=== PATIENT | female | born 1935 | race Caucasian/White ===

== ENCOUNTER 2016-09-13 14:14 | Outpatient (CLI) | payer MEDICARE ==
--- NOTE | 2016-09-14 15:51 | Mammography Report ---
DIGITAL SCREENING MAMMOGRAM: 09/13/2016 CLINICAL INDICATION: An 80-year-old, for screening. COMPARISON: 08/2015, 08/2014, 07/2013, 04/2011, 04/2010, 01/2009, 12/2008. TECHNIQUE: Routine CC and MLO projections were obtained of the breasts. FINDINGS: Parenchymal tissue within the breasts is predominantly fatty replaced. There are no domina nt masses, suspicious microcalcifications, or secondary signs of malignancy. In comparison to the pre vious studies, there are no significant changes. IMPRESSION: NO MAMMOGRAPHIC EVIDENCE OF MALIGNANCY. NO SIGNIFICANT INTERVAL CHANGES. RECOMMENDATION: Screening mammography is recommended annually. BIRADS category 1 - negative. STANDARD QUALIFYING STATEMENTS 1. This examination was reviewed with the aid of Computed-Aided Detection (CAD). 2. A negative or benign imaging report should not delay biopsy if clinically suspicious findings are present. Consider surgical consultation if warranted. More than 5% of cancers are not identified by i maging. 3. Dense breasts may obscure an underlying neoplasm. JOB #: [id number] EXT JOB #:[id number]
== END 2016-09-13 14:15 | disposition home or self-care (01) ==
LOC: DI 14:14
PROVIDERS: ATTEND Family Medicine
DX: Z12.31 Encounter for screening mammogram for malignant neoplasm of breast (principal)
CPT/HCPCS: 77067

== ENCOUNTER 2016-09-26 08:17 | Outpatient (CLI) | payer MEDICARE ==
[2016-09-26 12:59] LABS: ALBUMIN/GLOBULIN RATIO 1.3 (1.0-2.2); BILIRUBIN,TOTAL 0.5 mg/dL (0.2-1.0); BUN - BLOOD UREA NITROGEN 36 mg/dL (6-20); CALCIUM 9.4 mg/dL (8.5-10.3); CARBON DIOXIDE - CO2 25 mmol/L (21-32); CHLORIDE 98 mmol/L (101-111); CHOL/HDL RATIO 2.7 (<4.4); CHOLESTEROL 175 mg/dL; CREATININE 1.4 mg/dL (0.4-1.0); GFR - MDRD 36 (>89); GLUCOSE 113 mg/dL (70-100); HDL CHOLESTEROL 65 mg/dL; LDL/HDL RATIO 1.2 (<4.4); POTASSIUM 3.8 mmol/L (3.5-5.0); SODIUM 135 mmol/L (135-145); TOTAL PROTEIN 7.1 g/dL (6.7-8.2); TRIGLYCERIDES 144 mg/dL; VLDL CHOLESTEROL 29 mg/dL
[2016-09-26 13:22] LABS: BASOPHILS # (AUTO) 0.1 10^3/uL (0.0-0.1); BASOPHILS % (AUTO) 1.1 %; EOSINOPHILS # (AUTO) 0.5 10^3/uL (0.0-0.7); EOSINOPHILS % (AUTO) 4.8 %; HCT - HEMATOCRIT 40.3 % (37.0-47.0); HGB - HEMOGLOBIN 13.3 g/dL (12.0-16.0); LYMPHOCYTES % (AUTO) 20.6 %; MEAN CORPUSCULAR HEMOGLOBIN 27.7 pg (27.0-31.0); MEAN CORPUSCULAR VOLUME 83.9 fL (81.0-99.0); MEAN PLATELET VOLUME 9.7 fL (7.9-10.8); MONOCYTES # (AUTO) 0.7 10^3/uL (0.0-1.0); MONOCYTES % (AUTO) 7.3 %; NEUTROPHILS # (AUTO) 6.5 10^3/uL (1.5-6.6); NEUTROPHILS % (AUTO) 66.2 %; RED BLOOD COUNT 4.81 10^6/uL (4.20-5.40); RED CELL DISTRIBUTION WIDTH 14.7 % (12.0-15.0); UNCORRECTED WHITE BLOOD COUNT 9.8 x10^3/uL; WHITE BLOOD COUNT 9.8 x10^3/uL (4.8-10.8)
[2016-09-26 13:23] LABS: HEMOGLOBIN A1C 0.58 g/dL
== END 2016-09-26 08:18 | disposition home or self-care (01) ==
LOC: LAB.WCP 08:17
PROVIDERS: ATTEND Family Medicine
DX: I10 Essential (primary) hypertension (principal); E78.5 Hyperlipidemia, unspecified
CPT/HCPCS: 36415; 80053; 80061; 83036; 85025

== ENCOUNTER 2017-07-06 10:24 | Day surgery (SDC) | payer MEDICARE ==
[2017-07-06] MEDS ORDERED: LACTATED RINGERS 500 ML IV ONE (10:40)
[2017-07-06] MEDS ORDERED: CYCLOPENTOLATE 1% OPHTH DROPS 2 ML ONE (10:46)
[2017-07-06] MEDS ORDERED: PHENYLEPHRINE 2.5% OPHTH 2 ML DROPS ONE (10:46)
[2017-07-06] MEDS ORDERED: PROPARACAINE 0.5% OPHTH DROPS 15 ML ONE (10:46)
[2017-07-06] MEDS ORDERED: KETOROLAC 0.45% OPHTH DROPS ONE (10:46)
[2017-07-06] MEDS ORDERED: MIDAZOLAM 2 MG/2 ML VIAL IVP ONE (11:44)
[2017-07-06] MEDS ORDERED: BRIMONIDINE 0.2% OPHTH DROPS 5 ML OPTH ONE (11:45)
[2017-07-06] MEDS ORDERED: EPINEPHrine 1 MG/ML AMP IVP ONE (11:45)
[2017-07-06] MEDS ORDERED: TIMOLOL 0.5% OPHTH DROPS OPTH ONE (11:46)
[2017-07-06] MEDS ORDERED: CHONDR SULF/HYALURONATE SYRINGE IO ONE (11:46)
[2017-07-06] MEDS ORDERED: TRIAMCIN/MOXIFLOX/VANCO 1 ML VIAL IO ONE (11:46)
[2017-07-06] MEDS ORDERED: BSS/LIDOCAINE/EPINEPHRINE 1 ML SYRINGE IO ONE (11:46)
[2017-07-06] MEDS ORDERED: PROPARACAINE 0.5% OPHTH DROPS 15 ML RIGHTEYE ONE (11:47)
--- NOTE | 2017-07-06 12:12 | OPERATIVE REPORT ---
DATE OF SERVICE: 07/06/2017 Physician: Madhu Harkins MD PREOPERATIVE DIAGNOSIS: Visually significant cataract, right eye. This was her first cataract surgery. POSTOPERATIVE DIAGNOSIS: Visually significant cataract, right eye. This was her first cataract surgery. NAME OF PROCEDURE: Phacoemulsification with posterior chamber intraocular lens implant, right eye. SURGEON: Madhu Harkins MD ANESTHESIA: Monitored anesthesia care. COMPLICATIONS: None. OPERATIVE INDICATIONS: This is an 81-year-old woman with progressive vision loss in the right eye due to 2-3+ nuclear sclerotic, 2-3+ cortical, and vacuolar cataract. Best corrected visual acuity was 20/25 with glare to count fingers at 4 feet. Indications for surgery were overall decrease in vision, difficulty reading, difficulty driving in low light or at night, and just generalized blurry vision. She was consented at length concerning the risks and benefits of cataract surgery after which she expressed a desire to proceed with surgery. OPERATIVE PROCEDURE: The patient was taken into OR #3 and placed under monitored anesthesia care. A surgical timeout was conducted confirming correct patient, correct procedure, and correct surgical site. She was given topical anesthesia, and then prepped and draped in the usual sterile fashion. The eye was entered at the 12 and 9 o'clock positions. Intracameral Shugarcaine was injected into the anterior chamber, followed by Viscoat. A continuous-tear curvilinear capsulorrhexis was performed. The nucleus was hydrodissected and phacoemulsified. The cortex was evacuated using automated infusion and aspiration. Provisc was injected in the capsular bag, and a 22.5 diopter intraocular lens was inserted into the bag. Approximately 0.7 mL of a mixture of triamcinolone and moxifloxacin was injected subconjunctivally in the superior quadrant, and then an additional 0.4 mL of vancomycin was also injected in the same space for infection and inflammation prophylaxis. I and A was used to evacuate the viscoelastic material. The eye was inflated to physiologic pressure using balanced salt solution and found to be watertight. The patient was taken from the operating room in good condition and given postop instructions. TD: 07/06/2017 12:05
[2017-07-06 12:29] VITALS: BP 135/65
== END 2017-07-06 10:25 | disposition home or self-care (01) ==
LOC: SDS 10:24
PROVIDERS: ATTEND Ophthalmology
PROC: 08RJ3JZ Replacement of Right Lens with Synthetic Substitute, Percutaneous Approach (ICD-10-PCS; principal; 2017-07-06 11:30)
DX: H25.811 Combined forms of age-related cataract, right eye (principal); I10 Essential (primary) hypertension; Z79.82 Long term (current) use of aspirin; Z86.73 Personal history of transient ischemic attack (TIA), and cerebral infarction without residual deficits
CPT/HCPCS: 66984; A9270; J3490; V2632

== ENCOUNTER 2017-08-31 09:25 | Day surgery (SDC) | payer MEDICARE ==
[~2017-08-31 09:25] MED LIST: BRIMONIDINE 0.2% OPHTH DROPS 5 ML ONE; BSS/LIDOCAINE/EPINEPHRINE 1 ML SYRINGE ONE; EPINEPHrine 1 MG/ML AMP ONE; TIMOLOL 0.5% OPHTH DROPS ONE; TRIAMCIN/MOXIFLOX OPHTHALMIC 0.6 ML VIAL IO ONE; VANCOMYCIN OPHTHALMI 8MG/0.8ML 8 MG/0.8 ML SYRINGE IO ONE
[2017-08-31] MEDS ORDERED: PHENYLEPHRINE 2.5% OPHTH 2 ML DROPS LEFTEYE ONE (09:40)
[2017-08-31] MEDS ORDERED: KETOROLAC 0.45% OPHTH DROPS LEFTEYE ONE (09:40)
[2017-08-31] MEDS ORDERED: PROPARACAINE 0.5% OPHTH DROPS 15 ML LEFTEYE ONE ×2 (09:40→10:35)
[2017-08-31] MEDS ORDERED: CYCLOPENTOLATE 1% OPHTH DROPS 2 ML LEFTEYE ONE (09:40)
[2017-08-31] MEDS ORDERED: PHENYLEPHRINE 2.5% OPHTH 2 ML DROPS ONE (09:46)
[2017-08-31] MEDS ORDERED: KETOROLAC 0.45% OPHTH DROPS ONE (09:46)
[2017-08-31] MEDS ORDERED: CYCLOPENTOLATE 1% OPHTH DROPS 2 ML ONE (09:46)
[2017-08-31] MEDS ORDERED: PROPARACAINE 0.5% OPHTH DROPS 15 ML ONE (09:46)
[2017-08-31] MEDS ORDERED: LACTATED RINGERS 500 ML IV ONE (09:59)
[2017-08-31] MEDS ORDERED: BRIMONIDINE 0.2% OPHTH DROPS 5 ML OPTH ONE (10:34)
[2017-08-31] MEDS ORDERED: EPINEPHrine 1 MG/ML AMP IR ONE (10:34)
[2017-08-31] MEDS ORDERED: CHONDR SULF/HYALURONATE SYRINGE IO ONE (10:34)
[2017-08-31] MEDS ORDERED: BSS/LIDOCAINE/EPINEPHRINE 1 ML SYRINGE IO ONE ×2 (10:35)
[2017-08-31] MEDS ORDERED: TIMOLOL 0.5% OPHTH DROPS OPTH ONE (10:35)
[2017-08-31] MEDS ORDERED: MIDAZOLAM 2 MG/2 ML VIAL IVP ONE (10:37)
[2017-08-31 11:12] VITALS: BP 125/53
--- NOTE | 2017-08-31 12:24 | OPERATIVE REPORT ---
DATE OF SERVICE: 08/31/2017 Physician: Madhu Harkins MD PREOPERATIVE DIAGNOSIS: Visually significant cataract, left eye. Cataract surgery was performed on the right eye on 07/06/2017. POSTOPERATIVE DIAGNOSIS: Visually significant cataract, left eye. Cataract surgery was performed on the right eye on 07/06/2017. PROCEDURE: Phacoemulsification with posterior chamber intraocular lens implant, left eye. SURGEON: Madhu Harkins MD ANESTHESIA: Monitored anesthesia care. COMPLICATIONS: None. OPERATIVE INDICATIONS: This is an 81-year-old woman with progressive vision loss in the left eye due to 2+ nuclear sclerotic, 2+ cortical and vacuole cataract. Best corrected visual acuity was 20/20 with glare to count fingers at 7 feet in the left eye. Indications for surgery were overall decrease in vision, difficulty reading, difficulty seeing street signs and difficulty driving in low light or at night. She was consented at length concerning risks and benefits of cataract surgery, after which she expressed a desire to proceed with surgery. OPERATIVE PROCEDURE: The patient was taken to OR #3 and placed under monitored anesthesia care. A surgical timeout was conducted confirming correct patient, correct procedure, and correct surgical site. She was given topical anesthesia, and then prepped and draped in the usual sterile fashion. The eye was entered at the 6 and 3 o'clock positions. Intracameral Shugarcaine was injected into the anterior chamber, followed by Viscoat. A continuous-tear curvilinear capsulorrhexis was performed. The nucleus was hydrodissected and phacoemulsified. The cortex was evacuated using automated infusion and aspiration. Provisc was injected in the capsular bag, and a 22.0 diopter intraocular lens inserted in the bag. Approximately 0.8 mL of a mixture of triamcinolone, moxifloxacin, and vancomycin was injected subconjunctivally in the superior quadrant for infection and inflammation prophylaxis. I and A was used to evacuate the viscoelastic material. The eye was inflated to physiologic pressure using balanced salt solution and found to be watertight. The patient was taken from the operating room in good condition and given postop instructions. TD: 08/31/2017 10:59
== END 2017-08-31 09:26 | disposition home or self-care (01) ==
LOC: SDS 09:25
PROVIDERS: ATTEND Ophthalmology
PROC: 08RK3JZ Replacement of Left Lens with Synthetic Substitute, Percutaneous Approach (ICD-10-PCS; principal; 2017-08-31 10:30)
DX: H25.12 Age-related nuclear cataract, left eye (principal); H25.012 Cortical age-related cataract, left eye; Z87.891 Personal history of nicotine dependence; I10 Essential (primary) hypertension; Z86.73 Personal history of transient ischemic attack (TIA), and cerebral infarction without residual deficits; H40.9 Unspecified glaucoma; Z85.828 Personal history of other malignant neoplasm of skin; Z79.82 Long term (current) use of aspirin; Z79.899 Other long term (current) drug therapy; Z98.41 Cataract extraction status, right eye
CPT/HCPCS: 66984; A9270; J3490; V2632

== ENCOUNTER 2017-09-26 07:51 | Outpatient (CLI) | payer MEDICARE ==
[2017-09-26 13:55] LABS: BASOPHILS # (AUTO) 0.1 10^3/uL (0.0-0.1); BASOPHILS % (AUTO) 1.2 %; EOSINOPHILS # (AUTO) 0.5 10^3/uL (0.0-0.7); EOSINOPHILS % (AUTO) 5.9 %; HGB - HEMOGLOBIN 13.2 g/dL (12.0-16.0); LYMPHOCYTES # (AUTO) 1.9 10^3/uL (1.5-3.5); LYMPHOCYTES % (AUTO) 22.4 %; MEAN CORPUSCULAR HEMOGLOBIN 27.7 pg (27.0-31.0); MEAN CORPUSCULAR HGB CONC 33.3 g/dL (32.0-36.0); MEAN CORPUSCULAR VOLUME 83.1 fL (81.0-99.0); MEAN PLATELET VOLUME 9.7 fL (7.9-10.8); MONOCYTES # (AUTO) 0.6 10^3/uL (0.0-1.0); MONOCYTES % (AUTO) 7.6 %; NEUTROPHILS # (AUTO) 5.3 10^3/uL (1.5-6.6); NEUTROPHILS % (AUTO) 62.9 %; PLT - PLATELET COUNT 241 10^3/uL (130-450); RED BLOOD COUNT 4.76 10^6/uL (4.20-5.40); RED CELL DISTRIBUTION WIDTH 14.6 % (12.0-15.0); WHITE BLOOD COUNT 8.4 x10^3/uL (4.8-10.8)
[2017-09-26 14:00] LABS: ALBUMIN 3.7 g/dL (3.2-5.5); ALBUMIN/GLOBULIN RATIO 1.1 (1.0-2.2); ALKALINE PHOSPHATASE 68 IU/L (42-121); ALT ALANINE AMINOTRANSFERASE 19 IU/L (10-60); AST ASPARTATE AMINOTRANSFERASE 25 IU/L (10-42); BILIRUBIN,TOTAL 0.6 mg/dL (0.2-1.0); BUN - BLOOD UREA NITROGEN 23 mg/dL (6-20); CALCIUM 9.1 mg/dL (8.5-10.3); CARBON DIOXIDE - CO2 29 mmol/L (21-32); CHLORIDE 96 mmol/L (101-111); CHOL/HDL RATIO 2.6 (<4.4); CHOLESTEROL 172 mg/dL; CREATININE 1.1 mg/dL (0.4-1.0); GFR - MDRD 47 (>89); GLUCOSE 112 mg/dL (70-100); HDL CHOLESTEROL 67 mg/dL; LDL CHOLESTEROL,CALCULATED 83 mg/dL; LDL/HDL RATIO 1.2 (<4.4); SODIUM 135 mmol/L (135-145); VLDL CHOLESTEROL 22 mg/dL
[2017-09-26 15:07] LABS: HB2 TOTAL 13.9 g/dL; HEMOGLOBIN A1C 0.55 g/dL; HEMOGLOBIN A1C % 5.8 % (4.6-6.2)
== END 2017-09-26 07:52 | disposition home or self-care (01) ==
LOC: LAB.WCP 07:51
PROVIDERS: ATTEND Family Medicine
DX: I10 Essential (primary) hypertension (principal); E78.5 Hyperlipidemia, unspecified; R73.01 Impaired fasting glucose
CPT/HCPCS: 36415; 80053; 80061; 83036; 83721; 84443; 85025

== ENCOUNTER 2018-08-30 14:04 | Outpatient (CLI) | payer MEDICARE ==
[2018-08-30 18:51] LABS: BASOPHILS # (AUTO) 0.1 10^3/uL (0.0-0.1); BASOPHILS % (AUTO) 0.7 %; EOSINOPHILS # (AUTO) 0.3 10^3/uL (0.0-0.7); EOSINOPHILS % (AUTO) 3.7 %; LYMPHOCYTES % (AUTO) 21.7 %; MEAN CORPUSCULAR HEMOGLOBIN 27.5 pg (27.0-31.0); MEAN CORPUSCULAR VOLUME 85.9 fL (81.0-99.0); MEAN PLATELET VOLUME 11.5 fL (7.9-10.8); MONOCYTES # (AUTO) 0.7 10^3/uL (0.0-1.0); MONOCYTES % (AUTO) 8.1 %; NEUTROPHILS # (AUTO) 5.9 10^3/uL (1.5-6.6); NEUTROPHILS % (AUTO) 65.5 %; PLT - PLATELET COUNT 265 10^3/uL (130-450)
[2018-08-30 19:10] LABS: HB2 TOTAL 14.9 g/dL; HEMOGLOBIN A1C 0.59 g/dL; HEMOGLOBIN A1C % 5.8 % (4.6-6.2)
[2018-08-30 19:15] LABS: ALBUMIN 3.9 g/dL (3.2-5.5); ALBUMIN/GLOBULIN RATIO 1.3 (1.0-2.2); ALKALINE PHOSPHATASE 78 IU/L (42-121); ALT ALANINE AMINOTRANSFERASE 19 IU/L (10-60); AST ASPARTATE AMINOTRANSFERASE 22 IU/L (10-42); BILIRUBIN,TOTAL 0.6 mg/dL (0.2-1.0); BUN - BLOOD UREA NITROGEN 20 mg/dL (6-20); CALCIUM 9.3 mg/dL (8.5-10.3); CARBON DIOXIDE - CO2 26 mmol/L (21-32); CHLORIDE 100 mmol/L (101-111); CHOL/HDL RATIO 3.1 (<4.4); CHOLESTEROL 191 mg/dL; CREATININE 1.1 mg/dL (0.4-1.0); GFR - MDRD 47 (>89); GLUCOSE 104 mg/dL (70-100); HDL CHOLESTEROL 62 mg/dL; LDL CHOLESTEROL,CALCULATED 104 mg/dL; LDL/HDL RATIO 1.7 (<4.4); SODIUM 139 mmol/L (135-145); VLDL CHOLESTEROL 25 mg/dL
== END 2018-08-30 14:05 | disposition home or self-care (01) ==
LOC: LAB.WCP 14:04
PROVIDERS: ATTEND Family Medicine
DX: I12.9 Hypertensive chronic kidney disease with stage 1 through stage 4 chronic kidney disease, or unspecified chronic kidney disease (principal); N18.3 Chronic kidney disease, stage 3 (moderate); R73.01 Impaired fasting glucose; E78.5 Hyperlipidemia, unspecified
CPT/HCPCS: 36415; 80053; 80061; 83036; 83721; 84443; 85025

== ENCOUNTER 2018-09-07 09:26 | Outpatient (CLI) | payer MEDICARE ==
[2018-09-07] MEDS ORDERED: GADOBUTROL 10 MMOL/10 ML VIAL ONE (10:06)
[2018-09-07] MEDS ORDERED: GADOBUTROL 10 MMOL/10 ML VIAL IV ONE (10:54)
--- NOTE | 2018-09-07 14:26 | MRI Report ---
Reason: VERTIGO, MELANOMA Procedure Date: 09/07/2018 Accession Number: [id number] / [id number] Procedure: MRI - Brain W/WO CPT Code: FULL RESULT: EXAM: MRI BRAIN WITHOUT AND WITH CONTRAST EXAM DATE: 09/07/2018 11:29 AM. CLINICAL HISTORY: 82-year-old with history of melanoma presenting with dizziness. Evaluate for intracranial pathology. COMPARISON: None. TECHNIQUE: Multiplanar, multisequence T1-weighted and fluid-sensitive MR sequences of the brain were performed. Sequences optimized for routine evaluation. Other: None. IV Contrast: 10 cc Gadavist. FINDINGS: Brain Volume: Normal for age. Parenchyma: No acute parenchymal hemorrhage, mass or midline shift. Mild bilateral areas of T2/FLAIR signal hyperintensity seen. No areas of restricted diffusion seen to suggest acute infarct. No definite areas of abnormal parenchymal susceptibility artifact. No abnormal enhancement. Ventricles/Cisterns: No hydrocephalus. No abnormal extra-axial fluid collection or hemorrhage. Orbits: Changes of bilateral lens replacement. Sella Turcica: The pituitary gland, cavernous sinuses, suprasellar cistern and optic chiasm are unremarkable. IAC: Symmetric and unremarkable. Vasculature: Normal signal flow void is seen in the major arterial structures at the skull base. The dural sinuses are patent and enhance normally. Sinuses: No acute sinus disease. Bones: No focal pathologic appearing marrow signal changes. Other: None. IMPRESSION: 1. No definite evidence of intracranial metastatic disease. 2. No definite acute intracranial pathology seen; specifically, no acute infarct, acute intracranial hemorrhage, mass, hydrocephalus or midline shift. No abnormal postcontrast enhancement. 3. Mild white matter changes seen that, while nonspecific, may represent sequela of chronic small vessel ischemic disease. RADIA
== END 2018-09-07 09:27 | disposition home or self-care (01) ==
LOC: DI 09:26
PROVIDERS: ATTEND Family Medicine
DX: R42 Dizziness and giddiness (principal); C43.9 Malignant melanoma of skin, unspecified
CPT/HCPCS: 70553; A9585

== ENCOUNTER 2018-11-19 08:00 | Outpatient (CLI) | payer MEDICARE ==
[2018-11-19 12:23] LABS: HGB - HEMOGLOBIN 13.9 g/dL (12.0-16.0); MEAN CORPUSCULAR HEMOGLOBIN 27.3 pg (27.0-31.0); MEAN CORPUSCULAR HGB CONC 31.9 g/dL (32.0-36.0); MEAN CORPUSCULAR VOLUME 85.5 fL (81.0-99.0); MEAN PLATELET VOLUME 11.7 fL (7.9-10.8); RED BLOOD COUNT 5.1 10^6/uL (4.20-5.40); RED CELL DISTRIBUTION WIDTH 13.8 % (12.0-15.0); WHITE BLOOD COUNT 8.9 x10^3/uL (4.8-10.8)
[2018-11-19 13:06] LABS: CALCIUM 9.2 mg/dL (8.5-10.3); CREATININE 1.2 mg/dL (0.4-1.0)
== END 2018-11-19 23:59 | disposition home or self-care (01) ==
LOC: LAB.WCP 08:00
PROVIDERS: ATTEND Family Medicine
DX: N18.3 Chronic kidney disease, stage 3 (moderate) (principal)
CPT/HCPCS: 36415; 80048; 85027

== ENCOUNTER 2019-01-25 14:57 | Outpatient (CLI) | payer MEDICARE ==
--- NOTE | 2019-01-27 01:50 | XRAY Report ---
Reason: LOW BACK PAIN Procedure Date: 01/25/2019 Accession Number: [id number] / [id number] Procedure: WCP - Lumbar Spine 2 View CPT Code: Final Report FULL RESULT: EXAM: LUMBOSACRAL SPINE RADIOGRAPHY EXAM DATE: 01/25/2019 02:57 PM. CLINICAL HISTORY: LOW BACK PAIN. COMPARISONS: None. TECHNIQUE: 3 views. FINDINGS: Alignment: Mild lumbar levoscoliosis with apex at L3. No spondylolisthesis. Bones: Five [id number] lumbar vertebral bodies are present. No fractures or bone lesions. Disks: Disk degeneration with loss of disk height, mild at L3-L4, severe at L4-L5, and moderate L5-S1. Facets: Moderate to severe facet sclerosis from L3-L4 through L5-S1. Sacroiliac Joints: Unremarkable. Soft Tissues: Ossicle adjacent to the left greater trochanter. The visualized bowel gas pattern is normal. Status post cholecystectomy. IMPRESSION: Moderate to severe disk and facet degeneration greatest at L4-L5 and L5-S1. RADIA
== END 2019-01-25 23:59 | disposition home or self-care (01) ==
LOC: DI.WCP 14:57
PROVIDERS: ATTEND Family Medicine
DX: M51.36 Other intervertebral disc degeneration, lumbar region (principal); M51.37 Other intervertebral disc degeneration, lumbosacral region; M47.816 Spondylosis without myelopathy or radiculopathy, lumbar region; M47.817 Spondylosis without myelopathy or radiculopathy, lumbosacral region
CPT/HCPCS: 72100

== ENCOUNTER 2019-03-19 12:06 | Outpatient (CLI) | payer MEDICARE ==
--- NOTE | 2019-03-19 13:38 | MRI Report ---
Reason: LOW BACK PAIN, LIPOMA Procedure Date: 03/19/2019 Accession Number: [id number] / [id number] Procedure: MRI - Lumbar Spine W/O CPT Code: Final Report FULL RESULT: EXAM: MRI LUMBAR SPINE WITHOUT CONTRAST EXAM DATE: 03/19/2019 12:57 PM. CLINICAL HISTORY: 83-year-old with history of prior lumbar spine surgery presenting with low back pain and lower extremity radiculopathy. Evaluate for lumbar pathology. COMPARISON: LUMBAR SPINE 2 VIEW 01/25/2019 2:26 PM. TECHNIQUE: Multiplanar, multisequence T1-weighted and fluid-sensitive sequences of the lumbar spine from T12 to S1 without contrast. Other: None. FINDINGS: Postsurgical: Post surgical changes of L3-L4 and L4-L5 laminectomy. Spinal Canal: The conus terminates at L1. There appears to be clumping of the cauda equina nerve roots beginning at L3-L4 and extending to the sacrum. Alignment: There is 12 degrees of leftward curvature of the lumbar spine centered about L3. There is minimal grade 1 anterolisthesis of L2 on L3 and L3 and L4. There is 3-4 mm of grade 1 anterolisthesis of L4 on L5. Bone Marrow: Five [id number] lumbar vertebral bodies are assumed. No acute fracture or traumatic subluxation seen. There are Modic type II changes seen throughout the lumbar spine likely degenerative in nature. No definite abnormal marrow replacing process. Disk Levels/Facets: T12-L1: Mild endplate degenerative change with mild loss of disk height, Schmorl's node formation, and disk desiccation. Bilateral arthritic facet disease. No small canal stenosis. No significant neural foraminal narrowing. L1-L2: Mild endplate degenerative change, Schmorl's nodes formation, mild loss of disk height and disk desiccation. Bilateral arthritic facet disease. No spinal canal stenosis. No definite neural foraminal narrowing. L2-L3: Mild endplate degenerative change with mild loss of disk height and disk desiccation. Uncovering of the endplate. Bilateral arthritic facet disease, ligamentum flavum thickening, and slight posterior disk bulge. No spinal canal stenosis. Minimal left neural foraminal narrowing. L3-L4: Mild endplate degenerative change, Schmorl's node formation, mild loss of disk height, and disk desiccation. Uncovering of the endplate. Bilateral arthritic facet disease, slight posterior disk bulge, ligamentum flavum thickening, and decompression of the thecal sac. Fluid is seen within the facets bilaterally. Mild to moderate spinal canal stenosis and effacement of lateral recesses with contact of the traversing bilateral L4 nerve roots. Moderate to severe right and mild left neural foraminal narrowing with contact and potential mass effect on the exiting right L3 nerve root. L4-L5: Moderate endplate degenerative change, Schmorl's node formation, moderate loss of disk height and disk desiccation. Uncovering of the endplate. Decompression of the thecal sac. Bilateral arthritic facet disease and slight posterior disk bulge. Moderate spinal canal stenosis and effacement of the lateral recesses with contact and mass effect on the traversing right L5 and contacting the traversing left L5 nerve roots. Mild to moderate bilateral neural foraminal narrowing. L5-S1: Mild endplate degenerative change with mild loss of disk height and disk dessication. Slight posterior disk bulge and bilateral arthritic facet disease. Fluid is seen within the facets bilaterally, greater on the right. Mild spinal canal stenosis and effacement of the lateral recesses with contacting the traversing bilateral S1 nerve roots. Mild to moderate right and moderate left neural foraminal narrowing with contact of the exiting left L5 nerve root. Musculature: There is fatty atrophy of the posterior spinal musculature beginning at L3 and extending to the sacrum. There is edema seen within the posterior spinal musculature in this region which may represent post surgical change, muscular strain, or less likely denervation edema. There is edema seen within the subcutaneous tissues of the low back. Other: Left kidney superior pole T2 hyperintense lesion measuring up to 4 mm (series 601, image 34). Left kidney interpolar region T2 hypointense lesion measuring up to 17 mm (series 601, image 27). There are T2 intense lesion seen within the lower pole of the right kidney largest measuring up to 21 mm (series 601, image 23) and may represent renal cyst. IMPRESSION: 1. Post surgical changes of L3-L4 and L4-L5 laminectomy. 2. There is 12 degrees of leftward curvature of the lumbar spine centered about L3. 3. There is minimal grade 1 anterolisthesis of L2 on L3 and L3 and L4. There is 3-4 mm of grade 1 anterolisthesis of L4 on L5. 4. Multilevel degenerative changes. L3-L4: Mild to moderate spinal canal stenosis and effacement of lateral recesses with contact of the traversing bilateral L4 nerve roots. Moderate to severe right and mild left neural foraminal narrowing with contact and potential mass effect on the exiting right L3 nerve root. L4-L5: Moderate spinal stenosis and effacement of the lateral recesses with contact and mass effect on the traversing right L5 and contacting the traversing left L5 nerve roots. Mild to moderate bilateral neural foraminal narrowing. L5-S1: Mild spinal canal stenosis and effacement of the lateral recesses with contact the traversing bilateral S1 nerve roots. Mild to moderate right and moderate left neural foraminal narrowing with contact of the exiting left L5 nerve root. 5. Left kidney interpolar region T2 hypointense lesion measuring up to 17 mm (series 601, image 27). This may represent hemorrhagic cyst. Dedicated renal imaging is suggested for further evaluation. Comment: The following findings are so common in adults without low back pain that while we report their presence, they must be interpreted with caution and in the context of the clinical situation. (Reference Paytonk et al, Spine 2001) Prevalence of findings in patients without low back pain: Disk degeneration (any evidence): 92% Disk desiccation/T2 signal loss: 83% Disk height loss: 56% Disk bulge: 64% Disk protrusion: 32% Annular tear/high intensity zone: 38% RADIA
== END 2019-03-19 12:07 | disposition home or self-care (01) ==
LOC: DI 12:06
PROVIDERS: ATTEND Family Medicine
DX: M47.26 Other spondylosis with radiculopathy, lumbar region (principal); M47.27 Other spondylosis with radiculopathy, lumbosacral region; M43.16 Spondylolisthesis, lumbar region; M51.46 Schmorl's nodes, lumbar region; M48.061 Spinal stenosis, lumbar region without neurogenic claudication; M48.07 Spinal stenosis, lumbosacral region; N28.9 Disorder of kidney and ureter, unspecified
CPT/HCPCS: 72148

== ENCOUNTER 2019-04-12 08:32 | Outpatient (CLI) | payer MEDICARE ==
--- NOTE | 2019-04-12 10:37 | Ultrasound Report ---
Reason: KIDNEY CYST,ACQUIRED Procedure Date: 04/12/2019 Accession Number: [id number] / [id number] Procedure: US - Retroperitoneal CPT Code: Final Report FULL RESULT: EXAM: RENAL ULTRASOUND EXAM DATE: 04/12/2019 10:00 AM. CLINICAL HISTORY: History of hypertension and acquired renal cystic disease. COMPARISON: Lumbar spine MRI from 03/19/2019. TECHNIQUE: Real-time scanning was performed with static images obtained. FINDINGS: Right Kidney: 10.1 x 4.4 x 5.0 cm. No solid renal mass, calculus, hydronephrosis. There is a simple cyst in the interpolar region measuring 1.8 x 2.2 x 1.7 cm. There is a cyst with thin septation in the upper pole measuring 1.9 x 1.7 x 1.9 cm. Left Kidney: 10.5 x 4.5 x 4.9 cm. In the anterior polar region, there is a hypoechoic lesion with internal vascularity, compatible with a small mass. This measures 1.9 x 1.5 x 1.7 cm and corresponds to the finding on previous lumbar spine MRI. No calculus or hydronephrosis. Bladder: Bilateral jets seen. The prevoid bladder volume was 27 cc. The postvoid bladder volume was 0 cc. Other: Incidental note is made of increased hepatic parenchymal echogenicity. IMPRESSION: 1. Small left renal mass is suspicious for renal neoplasm. Renal MRI or CT could be considered for formal staging. Urology consultation is recommended. 2. Benign right renal cysts. 3. Incidentally noted increased hepatic echogenicity, which is nonspecific but is most commonly seen as sequela of hepatic steatosis. RADIA
== END 2019-04-12 08:33 | disposition home or self-care (01) ==
LOC: DI 08:32
PROVIDERS: ATTEND Family Medicine
DX: N28.89 Other specified disorders of kidney and ureter (principal); Q61.02 Congenital multiple renal cysts
CPT/HCPCS: 76770

== ENCOUNTER 2019-04-17 13:17 | Outpatient (CLI) | payer MEDICARE ==
[2019-04-17] MEDS ORDERED: IOVERSOL 320 100 ML VIAL IVP ONE ×2 (13:35→14:26)
[2019-04-17 13:50] LABS: CREATININE 1.1 mg/dL (0.4-1.0)
--- NOTE | 2019-04-18 14:29 | CT Report ---
Reason: KIDNEY MASS Procedure Date: 04/17/2019 Accession Number: [id number] / [id number] Procedure: CT - ABDOMEN W/WO CPT Code: Final Report FULL RESULT: EXAM: CT ABDOMEN WITHOUT AND WITH CONTRAST EXAM DATE: 04/17/2019 02:23 PM. HISTORY: Kidney mass. COMPARISON: RETROPERITONEAL 04/12/2019 8:47 AM. TECHNIQUE: Routine helical CT imaging was performed through the abdomen before and after administration of IV contrast: 100 mL Optiray 320. Enteric contrast: No. Reconstruction: Coronal and sagittal. In accordance with CT protocol optimization, one or more of the following dose reduction techniques were utilized for this exam: automated exposure control, adjustment of mA and/or KV based on patient size, or use of iterative reconstructive technique. FINDINGS: Lung Bases: Unremarkable. Liver: Normal. No masses. Gallbladder/Bile Ducts: Status post cholecystectomy. Spleen: Normal. Pancreas: Normal. No masses or ductal obstruction. Adrenal Glands: Normal. Kidneys: The solid posterior lower pole lesion of the left kidney is exophytic and measures up to 1.8 x 1.7 cm, see image 36 series 6. No hydronephrosis. Other renal hypodensities in the left are too small to characterize. Right kidney contains cysts, simple by Hounsfield units. Craniocaudal dimension is likely 2.1 cm as seen coronally on image 45. Peritoneal Cavity/Bowel: Normal. No free fluid, free air or adenopathy. No masses or acute inflammatory process. The appendix is well visualized and normal. Vasculature: No aneurysms or other significant abnormality. Bones: No significant abnormality. Other: None. IMPRESSION: Solid enhancing left lower pole renal lesion measuring up to 2.1 cm as described. By imaging criteria, this is suspicious for renal cell carcinoma. RADIA
== END 2019-04-17 13:18 | disposition home or self-care (01) ==
LOC: DI 13:17
PROVIDERS: ATTEND Family Medicine
DX: N28.89 Other specified disorders of kidney and ureter (principal)
CPT/HCPCS: 36415; 74170; 82565; Q9967

== ENCOUNTER 2019-10-22 08:00 | Outpatient (CLI) | payer MEDICARE ==
[2019-10-22 18:06] LABS: BILIRUBIN,URINE NEGATIVE (NEGATIVE); GLUCOSE, URINE (UA) NEGATIVE (NEGATIVE); KETONES,URINE (UA) NEGATIVE (NEGATIVE); LEUKOCYTE ESTERASE, URINE SMALL (NEGATIVE); NITRITE,URINE NEGATIVE (NEGATIVE); OCCULT BLOOD,URINE SMALL (NEGATIVE); PH,URINE 5.5 PH (5.0-7.5); PROTEIN,URINE NEGATIVE (NEGATIVE); UROBILINOGEN,URINE 0.2 (NORMAL) E.U./dL (NORMAL)
[2019-10-22 18:07] LABS: BASOPHILS # (AUTO) 0.1 10^3/uL (0.0-0.1); BASOPHILS % (AUTO) 0.6 %; EOSINOPHILS # (AUTO) 0.4 10^3/uL (0.0-0.7); EOSINOPHILS % (AUTO) 3.8 %; HGB - HEMOGLOBIN 13.2 g/dL (12.0-16.0); LYMPHOCYTES # (AUTO) 1.9 10^3/uL (1.5-3.5); LYMPHOCYTES % (AUTO) 16.7 %; MEAN CORPUSCULAR HEMOGLOBIN 27.3 pg (27.0-31.0); MEAN CORPUSCULAR HGB CONC 32.1 g/dL (32.0-36.0); MEAN CORPUSCULAR VOLUME 85.1 fL (81.0-99.0); MEAN PLATELET VOLUME 10.9 fL (7.9-10.8); MONOCYTES # (AUTO) 0.8 10^3/uL (0.0-1.0); MONOCYTES % (AUTO) 7.4 %; NEUTROPHILS # (AUTO) 7.9 10^3/uL (1.5-6.6); PLT - PLATELET COUNT 295 10^3/uL (130-450); RED BLOOD COUNT 4.83 10^6/uL (4.20-5.40); RED CELL DISTRIBUTION WIDTH 13.7 % (12.0-15.0); WHITE BLOOD COUNT 11.1 x10^3/uL (4.8-10.8)
[2019-10-22 18:17] LABS: CLARITY,URINE CLEAR (CLEAR)
[2019-10-22 18:24] LABS: BACTERIA,URINE None Seen /HPF (None Seen); RBC,URINE 0-5 /HPF (0-5); SQUAMOUS EPITHELIAL CELL,UR FEW Squamous (<= Few)
[2019-10-22 18:35] LABS: ALBUMIN 3.8 g/dL (3.2-5.5); ALBUMIN/GLOBULIN RATIO 1.3 (1.0-2.2); BILIRUBIN,TOTAL 0.5 mg/dL (0.2-1.0); CALCIUM 9.6 mg/dL (8.5-10.3); TOTAL PROTEIN 6.7 g/dL (6.7-8.2)
[2019-10-22 18:41] LABS: CHOL/HDL RATIO 2.9 (<4.4); CHOLESTEROL 196 mg/dL; HDL CHOLESTEROL 67 mg/dL; LDL CHOLESTEROL,CALCULATED 95 mg/dL; LDL/HDL RATIO 1.4 (<4.4); VLDL CHOLESTEROL 34 mg/dL
== END 2019-10-22 23:59 | disposition home or self-care (01) ==
LOC: LAB.WCP 08:00
PROVIDERS: ATTEND Orthopaedic Surgery Orthopaedic Surgery of the Spine
DX: Z01.818 Encounter for other preprocedural examination (principal); N39.0 Urinary tract infection, site not specified; E78.5 Hyperlipidemia, unspecified; R73.01 Impaired fasting glucose
CPT/HCPCS: 36415; 80053; 80061; 81001; 81003; 83036; 83721; 85025; 87086

== ENCOUNTER 2020-01-01 07:23 | Outpatient (CLI) | payer MEDICARE ==
[2020-01-01] MEDS ORDERED: IOVERSOL 320 100 ML VIAL IVP ONE ×2 (07:37→15:54)
[2020-01-01 08:20] LABS: CREATININE 1.1 mg/dL (0.4-1.0)
--- NOTE | 2020-01-01 10:47 | CT Report ---
PROCEDURE: ABDOMEN W/WO INDICATIONS: RENAL MASS, post renal ablation on 08/02/2019 CONTRAST: IV CONTRAST: Optiray 320 ml: 140 PO CONTRAST: *NO PO CONTRAST TECHNIQUE: 4 phase scanning was performed. After the administration of intravenous contrast, 5 mm thick section s acquired from the diaphragm to the symphysis. 5 mm coronal and sagittal reformats were acquired. For radiation dose reduction, the following was used: automated exposure control, adjustment of mA a nd/or kV according to patient size. COMPARISON: 04/17/2019. FINDINGS: Image quality: Excellent. Lung bases: Lung bases are clear. Heart size is normal. Kidneys: Interval renal ablation of small exophytic posterior left lower pole renal mass. No residua l viable enhancing tumor noted. Residual minimal contour deformity in the region of previous enhancin g mass. No suspicious right renal mass. Right renal cysts. Other solid organs: Liver: Small left lobe liver cyst. No suspicious liver masses. Gallbladder is kaufman rgically absent. Biliary system is non dilated. Pancreas is normal in morphology. Spleen is normal in size and enhancement. No adrenal nodules. Both kidneys demonstrate normal size and enhancement, without hydronephrosis or nephrolithiasis. Nodes and vessels: No retroperitoneal or mesenteric adenopathy by size criteria. Aorta and inferior vena cava are normal in size. Bowel and peritoneum: Unenhanced bowel loops are normal in caliber. No free fluid or air. Bones: No suspicious bony lesions. No vertebral body compression fractures. Miscellaneous: No ventral hernias. IMPRESSION: 1. Satisfactory appearance post percutaneous ablation of a small solid left renal mass. No residual e nhancing tumor identified. Mild residual contour deformity. Comment: Recommend follow-up multiphase CT in 12 months. Reviewed by: Augustin Ken MD on 01/01/2020 10:45 AM [facility] Approved by: Augustin Ken MD on 01/01/2020 10:45 AM PST Station ID: [id number]
== END 2020-01-01 07:24 | disposition home or self-care (01) ==
LOC: LAB 07:23
PROVIDERS: ATTEND Urology
DX: N28.89 Other specified disorders of kidney and ureter (principal)
CPT/HCPCS: 36415; 74170; 82565; 84520; Q9967

== ENCOUNTER 2020-06-16 09:58 | Outpatient (CLI) | payer MEDICARE ==
--- NOTE | 2020-06-16 14:44 | Ultrasound Report ---
PROCEDURE: Retroperitoneal INDICATIONS: RENAL MASS TECHNIQUE: Real-time scanning was performed of the retroperitoneal organs, with image documentation. COMPARISON: CT abdomen 01/01/2020, 04/17/2019, ultrasound 04/12/2019 FINDINGS: Kidneys: Kidneys are normal in size. Right kidney measures 10.6 cm long; left kidney measures 9.9 c m long. Right renal cortical thickness is 1.1 cm; left renal cortical thickness is 1.5 cm. No solid masses, hydronephrosis, or nephrolithiasis. Within the upper pole the right kidney, there are 2 foc i of decreased echogenicity measuring 2.0 x 1.7 x 2.6 cm and 2.0 x 1.9 x 2.0 cm. Within the right kid michael, there is a linear focus of increased echogenicity with posterior shadowing measuring approximate ly 7 mm. Postsurgical changes are noted along the inferior aspect of the left kidney. Bladder: Prevoid volume 1 24 cc. Postvoid residual 0 cc. Bilateral ureteral jets are identified. IMPRESSION: 1. Bilateral cysts. 2. Previously noted presence of renal mass that underwent percutaneous ablation in the left kidney is no longer visualized. Reviewed by: Jane Lucas MD on 06/16/2020 2:42 PM PDT Approved by: Jane Lucas MD on 06/16/2020 2:42 PM PDT Station ID: [id number]
--- NOTE | 2020-06-16 17:05 | XRAY Report ---
PROCEDURE: Chest 2 View X-Ray INDICATIONS: RENAL MASS TECHNIQUE: 2 view(s) of the chest. COMPARISON: None. FINDINGS: Surgical changes and devices: Partially visualized lumbar spine fixation hardware. Cholecystectomy cl ips. Lungs and pleura: No pleural effusions or pneumothorax. Lungs are clear. Mediastinum: Mediastinal contours are normal. Heart size is normal. Bones and chest wall: No suspicious bony abnormalities. Soft tissues appear unremarkable. IMPRESSION: No acute cardiopulmonary disease process. Reviewed by: Keara Denise MD, PhD on 06/16/2020 5:04 PM PDT Approved by: Keara Denise MD, PhD on 06/16/2020 5:04 PM PDT Station ID: [id number]
== END 2020-06-16 09:59 | disposition home or self-care (01) ==
LOC: DI 09:58
PROVIDERS: ATTEND Urology
DX: N28.89 Other specified disorders of kidney and ureter (principal); N28.1 Cyst of kidney, acquired

== ENCOUNTER 2020-07-06 08:00 | Outpatient (CLI) | payer MEDICARE ==
[2020-07-06 18:09] LABS: BASOPHILS # (AUTO) 0.1 10^3/uL (0.0-0.1); BASOPHILS % (AUTO) 0.7 %; EOSINOPHILS # (AUTO) 0.4 10^3/uL (0.0-0.7); EOSINOPHILS % (AUTO) 3.7 %; HCT - HEMATOCRIT 43.8 % (37.0-47.0); HGB - HEMOGLOBIN 13.4 g/dL (12.0-16.0); LYMPHOCYTES # (AUTO) 1.9 10^3/uL (1.5-3.5); LYMPHOCYTES % (AUTO) 18.4 %; MEAN CORPUSCULAR HGB CONC 30.6 g/dL (32.0-36.0); MEAN PLATELET VOLUME 11.4 fL (7.9-10.8); MONOCYTES # (AUTO) 0.7 10^3/uL (0.0-1.0); MONOCYTES % (AUTO) 6.8 %; NEUTROPHILS # (AUTO) 7.1 10^3/uL (1.5-6.6); NEUTROPHILS % (AUTO) 69.9 %; PLT - PLATELET COUNT 269 10^3/uL (130-450); RED BLOOD COUNT 5.15 10^6/uL (4.20-5.40); RED CELL DISTRIBUTION WIDTH 14.3 % (12.0-15.0); WHITE BLOOD COUNT 10.1 x10^3/uL (4.8-10.8)
[2020-07-06 18:25] LABS: ALBUMIN 3.8 g/dL (3.2-5.5); ALBUMIN/GLOBULIN RATIO 1.3 (1.0-2.2); ALKALINE PHOSPHATASE 81 IU/L (42-121); ALT ALANINE AMINOTRANSFERASE 17 IU/L (10-60); AST ASPARTATE AMINOTRANSFERASE 19 IU/L (10-42); BILIRUBIN,TOTAL 0.5 mg/dL (0.2-1.0); BUN - BLOOD UREA NITROGEN 20 mg/dL (6-20); CALCIUM 9.1 mg/dL (8.5-10.3); CARBON DIOXIDE - CO2 28 mmol/L (21-32); CHLORIDE 96 mmol/L (101-111); CHOL/HDL RATIO 3.2 (<4.4); CHOLESTEROL 202 mg/dL; CREATININE 1.2 mg/dL (0.4-1.0); GFR - MDRD 43 (>89); GLUCOSE 104 mg/dL (70-100); HDL CHOLESTEROL 64 mg/dL; LDL CHOLESTEROL,CALCULATED 112 mg/dL; LDL/HDL RATIO 1.8 (<4.4); POTASSIUM 3.9 mmol/L (3.5-5.0); SODIUM 131 mmol/L (135-145); TOTAL PROTEIN 6.8 g/dL (6.7-8.2); TRIGLYCERIDES 131 mg/dL; VLDL CHOLESTEROL 26 mg/dL
[2020-07-06 20:35] LABS: ESTIMATED AVERAGE GLUCOSE 117 mg/dL (70-100); HEMOGLOBIN A1c% 5.7 % (4.27-6.07)
== END 2020-07-06 23:59 | disposition home or self-care (01) ==
LOC: LAB.WCP 08:00
PROVIDERS: ATTEND Family Medicine
DX: R73.01 Impaired fasting glucose (principal); N18.30 Chronic kidney disease, stage 3 unspecified; E78.5 Hyperlipidemia, unspecified
CPT/HCPCS: 36415; 80053; 80061; 83036; 83721; 85025

== ENCOUNTER 2021-01-06 11:33 | Outpatient (CLI) | payer MEDICARE ==
[2021-01-06 18:27] LABS: ALBUMIN 3.9 g/dL (3.2-5.5); ALBUMIN/GLOBULIN RATIO 1.3 (1.0-2.2); BILIRUBIN,TOTAL 0.6 mg/dL (0.2-1.0); CALCIUM 9.3 mg/dL (8.5-10.3); CREATININE 1.3 mg/dL (0.4-1.0); POTASSIUM 4.2 mmol/L (3.5-5.0); TOTAL PROTEIN 6.9 g/dL (6.7-8.2)
[2021-01-06 20:11] LABS: ESTIMATED AVERAGE GLUCOSE 117 mg/dL (70-100); HEMOGLOBIN A1c% 5.7 % (4.27-6.07)
== END 2021-01-06 23:59 | disposition home or self-care (01) ==
LOC: LAB.WCP 11:33
PROVIDERS: ATTEND Family Medicine
DX: I10 Essential (primary) hypertension (principal); R73.01 Impaired fasting glucose
CPT/HCPCS: 36415; 80053; 83036

== ENCOUNTER 2021-07-08 10:05 | Outpatient (CLI) | payer MEDICARE ==
[2021-07-08 12:12] LABS: BASOPHILS # (AUTO) 0.1 10^3/uL (0.0-0.1); BASOPHILS % (AUTO) 0.8 %; EOSINOPHILS # (AUTO) 0.3 10^3/uL (0.0-0.7); EOSINOPHILS % (AUTO) 3.1 %; HGB - HEMOGLOBIN 13.1 g/dL (12.0-16.0); LYMPHOCYTES # (AUTO) 1.6 10^3/uL (1.5-3.5); LYMPHOCYTES % (AUTO) 17.9 %; MEAN CORPUSCULAR VOLUME 84.5 fL (81.0-99.0); MEAN PLATELET VOLUME 11.7 fL (7.9-10.8); NEUTROPHILS % (AUTO) 66.9 %; PLT - PLATELET COUNT 251 10^3/uL (130-450); RED BLOOD COUNT 4.85 10^6/uL (4.20-5.40); RED CELL DISTRIBUTION WIDTH 14.2 % (12.0-15.0)
[2021-07-08 12:37] LABS: ALBUMIN 3.7 g/dL (3.2-5.5); ALBUMIN/GLOBULIN RATIO 1.2 (1.0-2.2); ALKALINE PHOSPHATASE 77 IU/L (42-121); ALT ALANINE AMINOTRANSFERASE 16 IU/L (10-60); AST ASPARTATE AMINOTRANSFERASE 21 IU/L (10-42); BILIRUBIN,TOTAL 0.7 mg/dL (0.2-1.0); BUN - BLOOD UREA NITROGEN 21 mg/dL (6-20); CALCIUM 9.3 mg/dL (8.5-10.3); CARBON DIOXIDE - CO2 28 mmol/L (21-32); CHLORIDE 100 mmol/L (101-111); CHOL/HDL RATIO 2.8 (<4.4); CHOLESTEROL 180 mg/dL; CREATININE 1.1 mg/dL (0.4-1.0); GFR - MDRD 47 (>89); GLUCOSE 109 mg/dL (70-100); HDL CHOLESTEROL 65 mg/dL; LDL CHOLESTEROL,CALCULATED 90 mg/dL; LDL/HDL RATIO 1.4 (<4.4); POTASSIUM 3.7 mmol/L (3.5-5.0); SODIUM 139 mmol/L (135-145); TOTAL PROTEIN 6.8 g/dL (6.7-8.2); TRIGLYCERIDES 124 mg/dL; VLDL CHOLESTEROL 25 mg/dL
== END 2021-07-08 10:06 | disposition home or self-care (01) ==
LOC: LAB.N 10:05
PROVIDERS: ATTEND Family Medicine
DX: I10 Essential (primary) hypertension (principal); E78.5 Hyperlipidemia, unspecified
CPT/HCPCS: 36415; 80053; 80061; 83721; 85025

== ENCOUNTER 2022-12-06 07:41 | Outpatient (CLI) | payer MEDICARE ==
[2022-12-06 08:03] LABS: BASOPHILS # (AUTO) 0.1 10^3/uL (0.0-0.1); BASOPHILS % (AUTO) 0.7 %; EOSINOPHILS # (AUTO) 0.5 10^3/uL (0.0-0.7); EOSINOPHILS % (AUTO) 5.4 %; HCT - HEMATOCRIT 44.3 % (37.0-47.0); HGB - HEMOGLOBIN 14.1 g/dL (12.0-16.0); LYMPHOCYTES # (AUTO) 1.8 10^3/uL (1.5-3.5); LYMPHOCYTES % (AUTO) 18.4 %; MEAN CORPUSCULAR HEMOGLOBIN 27.1 pg (27.0-31.0); MEAN CORPUSCULAR HGB CONC 31.8 g/dL (32.0-36.0); MONOCYTES # (AUTO) 0.8 10^3/uL (0.0-1.0); MONOCYTES % (AUTO) 8.5 %; NEUTROPHILS # (AUTO) 6.5 10^3/uL (1.5-6.6); NEUTROPHILS % (AUTO) 66.9 %; PLT - PLATELET COUNT 217 10^3/uL (130-450); RED BLOOD COUNT 5.21 10^6/uL (4.20-5.40); RED CELL DISTRIBUTION WIDTH 13.9 % (12.0-15.0); WHITE BLOOD COUNT 9.8 x10^3/uL (4.8-10.8)
[2022-12-06 08:16] LABS: ALBUMIN 3.9 g/dL (3.2-5.5); ALBUMIN/GLOBULIN RATIO 1.4 (1.0-2.2); ALKALINE PHOSPHATASE 88 IU/L (42-121); ALT ALANINE AMINOTRANSFERASE 11 IU/L (10-60); AST ASPARTATE AMINOTRANSFERASE 16 IU/L (10-42); BILIRUBIN,TOTAL 0.6 mg/dL (0.2-1.0); BUN - BLOOD UREA NITROGEN 18 mg/dL (6-20); CALCIUM 9.9 mg/dL (8.5-10.3); CARBON DIOXIDE - CO2 30 mmol/L (21-32); CHLORIDE 99 mmol/L (101-111); CHOLESTEROL 188 mg/dL; CREATININE 1.1 mg/dL (0.6-1.3); GFR - MDRD 47 (>89); GLUCOSE 111 mg/dL (74-104); HDL CHOLESTEROL 62 mg/dL; LDL CHOLESTEROL,CALCULATED 103 mg/dL; LDL/HDL RATIO 1.7 (<4.4); POTASSIUM 3.8 mmol/L (3.5-4.5); SODIUM 136 mmol/L (135-145); TOTAL PROTEIN 6.6 g/dL (6.4-8.9); TRIGLYCERIDES 115 mg/dL (48-352); VLDL CHOLESTEROL 23 mg/dL
== END 2022-12-06 07:42 | disposition home or self-care (01) ==
LOC: LAB 07:41
PROVIDERS: ATTEND Physician Assistant
DX: I10 Essential (primary) hypertension (principal); E78.5 Hyperlipidemia, unspecified
CPT/HCPCS: 36415; 80053; 80061; 83721; 85025

== ENCOUNTER 2023-04-14 13:52 | Outpatient (CLI) | payer MEDICARE ==
[2023-04-14] MEDS ORDERED: IOVERSOL 320 100 ML VIAL IVP ONE ×2 (14:36)
--- NOTE | 2023-04-14 14:58 | DEXA Report ---
PROCEDURE: Dexa Spine and/or Hip INDICATIONS: POSTMENOPAUSAL TECHNIQUE: Dual energy x-ray absorptiometry (DXA) was performed on a Beamly System. Regions measur ed are the AP Spine, femoral neck, and if needed forearm. COMPARISON: None FINDINGS: Left Femoral Neck: Bone Mineral Density: 0.93 g/cm/cm, T score: -0.8. Left Hip: Bone Mineral Density: 0.96 g/cm/cm,T score: -0.4. Left Forearm: Bone Mineral Density: 0.93 g/cm/cm, T score: 0.6. (T score greater or equal to -1.0: NORMAL) (T score from -1.1 to -2.4: OSTEOPENIA) (T score less than or equal to -2.5 to: OSTEOPOROSIS) Impression: By WHO criteria, this patient has normal bone density. Patients with diagnosis of osteoporosis or osteopenia should have regular bone mineral density assess ment. For those eligible for Medicare, routine testing is allowed once every 2 years. Testing frequ ency can be increased for patients who have rapidly progressing disease or for those who are receivin g medical therapy to restore bone mass. Reviewed by: Fredi Hilario MD on 04/14/2023 2:57 PM PST Approved by: Fredi Hilario MD on 04/14/2023 2:57 PM PST Station ID: [id number]
== END 2023-04-14 13:53 | disposition home or self-care (01) ==
LOC: DI 13:52
PROVIDERS: ATTEND Physician Assistant
DX: Z78.0 Asymptomatic menopausal state (principal)
CPT/HCPCS: 36415; 82565

== ENCOUNTER 2023-04-25 09:15 | Outpatient (CLI) | payer MEDICARE ==
[2023-04-25] MEDS ORDERED: iohexoL-300 150 ML BOTTLE ONE (09:34)
--- NOTE | 2023-04-25 10:54 | CT Report ---
PROCEDURE: Abdomen W/WO INDICATIONS: HISTORY OF KIDNEY MASS TECHNIQUE: Axial CT images were obtained before and after contrast administration. Multiple phases we re obtained after contrast administration. Multiplanar reformats were also obtained. For radiation dose reduction, the following was used: automated exposure control, adjustment of mA a nd/or kV according to patient size. Contrast was used. COMPARISON: 01/01/2020 CT FINDINGS: Image quality: Diagnostic Lower chest: The left lower lobe granuloma is again seen. A mild to moderate hiatal hernia, with a pa raesophageal component also again seen. Liver: Left lobe suspected cyst again seen. No solid mass identified. Gallbladder and biliary system: Absent, ectatic post cholecystectomy. Pancreas: Mild to moderate atrophy of the parenchyma. No ductal dilation Spleen: Nonenlarged Adrenals: No discrete nodules Kidneys: There are renal cysts. No complicated lesion requiring follow-up imaging. No solid renal mas s identified. Subcentimeter lesions are too small to characterize, Bosniak 2 per proposed 2019 guidel elías. In the left posterior kidney, there is a treatment zone with partial fatty attenuation, measuring 1.3 cm, similar in size compared to 2019. Vessels and lymph nodes: The left renal vein is patent. The main portal vein is patent. No abdominal aortic aneurysm. No pathologic lymph nodes by size criteria. Bowel and peritoneum: No evidence of small bowel obstruction. No pathologic ascites. Body wall: Unremarkable Bones: Partially evaluated and lumbar fusion hardware. IMPRESSION: Increased partial fatty attenuation of the left posterior renal treatment zone, overall similar in si ze compared to 2019. Continued imaging follow-up is suggested. No active metastatic disease identified in the abdomen. Reviewed by: Fredi Hilario MD on 04/25/2023 10:53 AM PDT Approved by: Fredi Hilario MD on 04/25/2023 10:53 AM PDT Station ID: [id number]
[2023-04-25] MEDS: iohexoL-300 100 ML VIAL IVP ONE (18:25)
== END 2023-04-25 09:16 | disposition home or self-care (01) ==
LOC: DI 09:15
PROVIDERS: ATTEND Physician Assistant
DX: N28.89 Other specified disorders of kidney and ureter (principal)
CPT/HCPCS: 74170; Q9967